=== PATIENT | female | born 1980 | race Two or more races ===

== ENCOUNTER 2020-12-10 15:14 | Outpatient (REF) | payer OTHER, SELFPAY ==
[2020-12-10 15:36] LABS: COVID-19 Test Negative (Negative)
== END 2020-12-10 15:15 | disposition home or self-care (01) ==
LOC: HO.EMPCOV 15:14
PROVIDERS: Visit Provider Internal Medicine
DX: Z20.822 Contact with and (suspected) exposure to COVID-19 (principal)
CPT/HCPCS: 36415; 87635; C9803

== ENCOUNTER 2020-12-13 14:31 | Outpatient (REF) | payer OTHER, SELFPAY ==
[2020-12-13 14:40] LABS: COVID-19 Test Negative (Negative)
== END 2020-12-13 14:32 | disposition home or self-care (01) ==
LOC: HO.EMPCOV 14:31
PROVIDERS: Visit Provider Internal Medicine
DX: Z20.822 Contact with and (suspected) exposure to COVID-19 (principal)
CPT/HCPCS: 36415; 87635; C9803